=== PATIENT | female | born 1995 | race Caucasian/White ===

== ENCOUNTER → 2021-09-10 15:46 | Outpatient (ROUT) | payer SELFPAY ==
[2021-09-10 15:48] LABS: Urine Drug Scr, Empl Non-NIDA See Separate Report
== END ==
DX: Z02.1 Encounter for pre-employment examination (principal)
CPT/HCPCS: 81099

== ENCOUNTER 2021-09-17 13:41 | Emergency (ER) | payer OTHER, SELFPAY ==
[2021-09-17] VITALS (7 sets, daily range): BP systolic 111–125; BP diastolic 59–75; PULSE 59–75; RESP 15–30; TEMP 36.1; O2SAT 99–100
--- NOTE | 2021-09-17 14:15 | DI.RAD.S_ITS ---
PROCEDURE: XR CHEST 1V INDICATIONS: chest pain TECHNIQUE: One view of the chest was acquired. COMPARISON: [facility], CR, XR CHEST 2VW, 07/18/2015, 19:40. FINDINGS: Surgical changes and devices: None. Lungs and pleura: Lungs are clear. No pleural effusions or pneumothorax. Mediastinum: Mediastinal contours appear normal. Heart size is normal. Bones and chest wall: No suspicious bony lesions. Overlying soft tissues appear unremarkable. IMPRESSION: No acute cardiopulmonary disease. Dictated by: Cary Kelsey M.D. on 09/17/2021 at 15:19 Approved by: Cary Kelsey M.D. on 09/17/2021 at 15:20
[2021-09-17 14:42] LABS: Add Manual Diff / Slide Review NO; Basophils Absolute Auto 0 /uL (0-100); Basophils Percent Auto 0.1 % (0-2); Eosinophils Absolute Auto 0 /uL (0-450); Eosinophils Percent Auto 0.3 % (2-4); Hematocrit 47.8 % (41-53); Lymphocytes Absolute Auto 1200 /uL (1100-4500); Lymphocytes Percent Auto 14.4 % (25-40); Mean Corpuscular HGB Conc 35.5 % (30-36); Mean Corpuscular Hemoglobin 32.4 PG (26-34); Mean Corpuscular Volume 91.2 fL (80-100); Monocytes Absolute Auto 500 /uL (0-900); Monocytes Percent Auto 5.8 % (3-14); Neutrophils Absolute Auto 6800 /uL (1500-7000); Neutrophils Percent Auto 79.4 % (50-75); Platelet Count 219 X10^3/uL (150-400); Red Blood Cell Count 5.24 X10^6/uL (4.5-5.9); White Blood Cell Count 8.6 X10^3/uL (4.5-11.0)
[2021-09-17 14:56] LABS: Alanine Aminotransferase 27 IU/L (<50); Albumin 4.7 g/dL (3.5-5.0); Alkaline Phosphatase 62 U/L (38-126); Aspartate Aminotransferase 31 IU/L (17-59); BUN Creatinine Ratio 16.7 (6-22); Bilirubin Total 1.1 mg/dL (0.2-1.3); Blood Urea Nitrogen 15 mg/dL (9-20); Calcium 9.4 mg/dL (8.4-10.2); Carbon Dioxide 25 mmol/L (22-32); Chloride 101 mmol/L (98-107); Creatine Kinase 83 U/L (55-170); Estimated Glomerular Filt Rate > 60 mL/min (>60); Globulin 2.4 g/dL (1.7-4.1); Glucose 146 mg/dL (70-100); HEMOLYSIS < 15 (0-50); Lipase 42 U/L (23-300); Magnesium 1.9 mg/dL (1.6-2.3); Potassium 3.7 mmol/L (3.4-5.1); Sodium 138 mmol/L (137-145); Total Protein 7.1 g/dL (6.3-8.2)
[2021-09-17 15:08] LABS: Troponin I < 0.012 ng/mL (0.01-0.034)
--- NOTE | 2021-09-17 16:42 | ED.DIZZY ---
HPI - Dizziness <Jason Russo PA-C - Last Filed: 09/17/21 20:24> General Chief Complaint: Syncope Stated Complaint: syncope Time Seen by Provider: 09/17/21 16:05 Source: patient Mode of arrival: Family Vehicle History of Present Illness HPI Narrative: Patient is a 26-year-old male who presents to the emergency department for an evaluation of a syncopal episode that occurred today. Patient explains that he has a new higher at the hospital and was receiving a blood draw when he experienced the syncopal episode. He states that immediately after experiencing a syncopal episode he began to experience slight confusion and mild headache with some associated lightheadedness and mild tingling sensations, however he explains that he is gradually feeling better. He denies any subsequent episodes after the initial syncopal episode. He denies any fever, chills, chest pain, cough, shortness of breath, nausea, vomiting, diarrhea, constipation, abdominal pain, dysuria, hematuria, changes in vision or hearing, generalized weakness, word-finding difficulty, speech abnormalities, worsening confusion, or any other concerning symptoms. No further concerns were voiced at this time. Related Data Allergies Allergy/AdvReac Type Severity Reaction Status Date / Time No Known Drug Allergies Allergy Verified 09/17/21 14:25 Review of Systems <Jason Russo PA-C - Last Filed: 09/17/21 20:24> Constitutional Constitutional: Denies chills, Denies fatigue, Denies fever(s), Denies frequent falls, Reports headache(s), Denies lethargy and Denies weakness ENT Ears, Nose, Mouth, and Throat: Reports headache(s) and Denies neck pain Cardiovascular Cardiovascular: Denies chest pain, Denies irregular heart rhythm, Denies lightheadedness, Denies palpitations, Denies dyspnea, Denies dyspnea on exertion and Denies orthopnea Respiratory Respiratory: Denies dyspnea and Denies dyspnea on exertion Gastrointestinal Gastrointestinal: Denies abdominal pain, Denies change in bowel habits, Denies diarrhea, Denies nausea and Denies vomiting Genitourinary Genitourinary: Denies hematuria, Denies flank pain, Denies urinary incontinence and Denies urinary urgency Musculoskeletal Musculoskeletal: Denies back pain, Denies muscle weakness, Denies neck pain, Denies numbness and Reports tingling Integumentary/Breasts Skin/Breast: Denies pruritus, Denies erythema, Denies rash and Denies wounds Neurologic Neurologic: Denies frequent falls, Reports headache(s), Denies numbness, Reports tingling, Denies weakness and Reports other (Syncope) Endocrine Endocrine: Denies fatigue and Denies palpitations Patient History <Jason Russo PA-C - Last Filed: 09/17/21 20:24> Social History Smoking Status: Never smoker Smoking Status: Never smoker alcohol intake frequency: 0-2 drinks per day Substance Use Type: does not use Exam <Jason Russo PA-C - Last Filed: 09/17/21 20:24> Narrative Exam Narrative: GENERAL: 26 year old patient appears stated age. Well-developed patient, in no acute distress. HEAD: Atraumatic. Normocephalic. EYES: Pupils equal round and reactive. Extraocular motions intact. No scleral icterus. No injection or drainage. ENT: Nose without bleeding, purulent drainage. Throat without erythema, tonsillar hypertrophy or exudate. Airway patent. NECK: Trachea midline. Non tender CARDIOVASCULAR: Regular rate and rhythm without murmurs, gallops, or rubs. RESPIRATORY: Clear to auscultation. Breath sounds equal bilaterally. No wheezes, rales, or rhonchi. GASTROINTESTINAL: Abdomen soft, non-tender, nondistended. EXTREMITIES: No edema or joint tenderness. BACK: Nontender without deformity or crepitance. No flank tenderness. NEURO: AOx3. Cranial nerves 2 through 12 grossly intact. Good sensation light touch appreciated throughout the bilateral upper and lower extremities. Gross motor function intact throughout the bilateral upper and lower extremities. Patient is answering questions and interacting appropriately. No pronator drift. SKIN: No rash or erythema of visible areas Initial Vital Signs Initial Vital Signs: Vital Signs Pulse Rate 59 L 09/17/21 14:05 Respiratory Rate 09/17/21 14:05 Blood Pressure 121/75 09/17/21 14:05 Pulse Oximetry 100 09/17/21 14:05 <Melva Rehman DO - Last Filed: 09/21/21 07:20> Initial Vital Signs Initial Vital Signs: Vital Signs Pulse Rate 59 L 09/17/21 14:05 Respiratory Rate 09/17/21 14:05 Blood Pressure 121/75 09/17/21 14:05 Pulse Oximetry 100 09/17/21 14:05 Course <Jason Russo PA-C - Last Filed: 09/17/21 20:24> Course Course Narrative: CBC, CMP, magnesium, lipase, troponin, chest x-ray, EKG ordered. Chest x-ray and lab studies all within normal limits. Patient explains that he is feeling significantly better since arriving to the emergency department. Orders Ordered: ED Orders 09/17/21 14:15 XR chest 1V Stat 09/17/21 14:31 Complete Blood Count AUTO DIFF Stat Comprehensive Metabolic Panel Stat Lipase Stat Magnesium Stat Troponin & CK Cardiac Panel Stat Vital Signs Vital signs: Vital Signs - 8 hr 09/17/21 14:17 09/17/21 14:05 09/17/21 14:05 Temperature 96.9 F L Pulse Rate 75 59 L Respiratory Rate 20 22 Blood Pressure 121/75 121/75 Pulse Oximetry 99 100 Oxygen Delivery Method Room Air 09/17/21 14:30 09/17/21 14:30 09/17/21 15:00 Temperature Pulse Rate 60 Respiratory Rate 29 H Blood Pressure 118/61 119/60 Pulse Oximetry 100 Oxygen Delivery Method 09/17/21 15:00 09/17/21 15:30 09/17/21 15:30 Temperature Pulse Rate 62 75 Respiratory Rate 19 15 Blood Pressure 111/59 L Pulse Oximetry 100 99 Oxygen Delivery Method 09/17/21 16:00 09/17/21 16:00 09/17/21 16:30 Temperature Pulse Rate 66 Respiratory Rate 30 H Blood Pressure 122/71 125/69 Pulse Oximetry 100 Oxygen Delivery Method 09/17/21 16:30 Temperature Pulse Rate 74 Respiratory Rate 19 Blood Pressure Pulse Oximetry 100 Oxygen Delivery Method <Melva Rehman DO - Last Filed: 09/21/21 07:20> Orders Ordered: ED Orders 09/17/21 14:15 XR chest 1V Stat 09/17/21 14:31 Complete Blood Count AUTO DIFF Stat Comprehensive Metabolic Panel Stat Lipase Stat Magnesium Stat Troponin & CK Cardiac Panel Stat Vital Signs Vital signs: Vital Signs - 8 hr 09/17/21 14:17 09/17/21 14:05 09/17/21 14:05 Temperature 96.9 F L Pulse Rate 75 59 L Respiratory Rate 20 22 Blood Pressure 121/75 121/75 Pulse Oximetry 99 100 Oxygen Delivery Method Room Air 09/17/21 14:30 09/17/21 14:30 09/17/21 15:00 Temperature Pulse Rate 60 Respiratory Rate 29 H Blood Pressure 118/61 119/60 Pulse Oximetry 100 Oxygen Delivery Method 09/17/21 15:00 09/17/21 15:30 09/17/21 15:30 Temperature Pulse Rate 62 75 Respiratory Rate 19 15 Blood Pressure 111/59 L Pulse Oximetry 100 99 Oxygen Delivery Method 09/17/21 16:00 09/17/21 16:00 09/17/21 16:30 Temperature Pulse Rate 66 Respiratory Rate 30 H Blood Pressure 122/71 125/69 Pulse Oximetry 100 Oxygen Delivery Method 09/17/21 16:30 Temperature Pulse Rate 74 Respiratory Rate 19 Blood Pressure Pulse Oximetry 100 Oxygen Delivery Method MDM - Dizziness <Jason Russo PA-C - Last Filed: 09/17/21 20:24> Lab Data Result diagrams: 09/17/21 14:31 09/17/21 14:31 Labs: Lab Results 09/17/21 09/17/21 Range/Units 14:31 14:31 WBC 8.6 (4.5-11.0) X10^3/uL RBC 5.24 (4.5-5.9) X10^6/uL Hgb 17.0 (13.5-17.5) g/dL Hct 47.8 (41-53) % MCV 91.2 (80-100) fL MCH 32.4 (26-34) PG MCHC 35.5 (30-36) % RDW 12.0 (11.6-14.8) % Plt Count 219 (150-400) X10^3/uL Neut % (Auto) 79.4 H (50-75) % Lymph % (Auto) 14.4 L (25-40) % Castro % (Auto) 5.8 (3-14) % Eos % (Auto) 0.3 L (2-4) % Baso % (Auto) 0.1 (0-2) % Neut # (Auto) 6800 (2253-5173) /uL Lymph # (Auto) 1200 (8423-4316) /uL Castro # (Auto) 500 (0-900) /uL Eos # (Auto) 0 (0-450) /uL Baso # (Auto) 0 (0-100) /uL Sodium 138 (137-145) mmol/L Potassium 3.7 (3.4-5.1) mmol/L Chloride 101 (98-107) mmol/L Carbon Dioxide 25 (22-32) mmol/L BUN 15 (9-20) mg/dL Creatinine 0.90 (0.66-1.25) mg/dL Estimated GFR > 60 (>60) mL/min BUN/Creatinine Ratio 16.7 (6-22) Glucose 146 H (70-100) mg/dL Calcium 9.4 (8.4-10.2) mg/dL Magnesium 1.9 (1.6-2.3) mg/dL Total Bilirubin 1.1 (0.2-1.3) mg/dL AST 31 (17-59) IU/L ALT 27 (<50) IU/L Alkaline Phosphatase 62 (38-126) U/L Total Creatine Kinase 83 (55-170) U/L CK-MB (CK-2) TNP CK-MB (CK-2) Rel Index TNP Troponin I < 0.012 (0.01-0.034) ng/mL Total Protein 7.1 (6.3-8.2) g/dL Albumin 4.7 (3.5-5.0) g/dL Globulin 2.4 (1.7-4.1) g/dL Albumin/Globulin Ratio 2.0 (1.0-2.8) Lipase 42 (23-300) U/L Imaging Data Chest x-ray: Radiologist's Impression: PROCEDURE:? XR CHEST 1V ? INDICATIONS:? chest pain ? TECHNIQUE:? One view of the chest was acquired.? ? COMPARISON:? [facility], CR, XR CHEST 2VW, 07/18/2015, 19:40. ? FINDINGS:? ? Surgical changes and devices:? None.? ? Lungs and pleura:? Lungs are clear.? No pleural effusions or pneumothorax.? ? Mediastinum:? Mediastinal contours appear normal.? Heart size is normal.? ? Bones and chest wall:? No suspicious bony lesions.? Overlying soft tissues appear unremarkable.? ? IMPRESSION:? No acute cardiopulmonary disease. ? ? Dictated by: Cary Kelsey M.D. on 09/17/2021 at 15:19 ? ? Approved by: Cary Kelsey M.D. on 09/17/2021 at 15:20 MDM Narrative Medical decision making narrative: Differential diagnosis to consider but not limited to seizure disorder versus vasovagal syncope versus cardiogenic syncope versus cardiac arrhythmia. Physical examination history are reassuring, most likely vasovagal syncope considering that there was a triggering event in the blood draw. I informed the patient of the results of lab studies and imaging obtained in the emergency department today and explained there is no abnormality identified. I urged the patient to stay well hydrated throughout the day and follow-up with primary care for further evaluation and management. Patient expresses understanding and agrees to plan. Strict return precautions were discussed with the patient prior to discharge. <Melva Rehman, DO - Last Filed: 09/21/21 07:20> Lab Data Labs: Lab Results 09/17/21 09/17/21 Range/Units 14:31 14:31 WBC 8.6 (4.5-11.0) X10^3/uL RBC 5.24 (4.5-5.9) X10^6/uL Hgb 17.0 (13.5-17.5) g/dL Hct 47.8 (41-53) % MCV 91.2 (80-100) fL MCH 32.4 (26-34) PG MCHC 35.5 (30-36) % RDW 12.0 (11.6-14.8) % Plt Count 219 (150-400) X10^3/uL Neut % (Auto) 79.4 H (50-75) % Lymph % (Auto) 14.4 L (25-40) % Castro % (Auto) 5.8 (3-14) % Eos % (Auto) 0.3 L (2-4) % Baso % (Auto) 0.1 (0-2) % Neut # (Auto) 6800 (1556-1839) /uL Lymph # (Auto) 1200 (0550-4125) /uL Castro # (Auto) 500 (0-900) /uL Eos # (Auto) 0 (0-450) /uL Baso # (Auto) 0 (0-100) /uL Sodium 138 (137-145) mmol/L Potassium 3.7 (3.4-5.1) mmol/L Chloride 101 (98-107) mmol/L Carbon Dioxide 25 (22-32) mmol/L BUN 15 (9-20) mg/dL Creatinine 0.90 (0.66-1.25) mg/dL Estimated GFR > 60 (>60) mL/min BUN/Creatinine Ratio 16.7 (6-22) Glucose 146 H (70-100) mg/dL Calcium 9.4 (8.4-10.2) mg/dL Magnesium 1.9 (1.6-2.3) mg/dL Total Bilirubin 1.1 (0.2-1.3) mg/dL AST 31 (17-59) IU/L ALT 27 (<50) IU/L Alkaline Phosphatase 62 (38-126) U/L Total Creatine Kinase 83 (55-170) U/L CK-MB (CK-2) TNP CK-MB (CK-2) Rel Index TNP Troponin I < 0.012 (0.01-0.034) ng/mL Total Protein 7.1 (6.3-8.2) g/dL Albumin 4.7 (3.5-5.0) g/dL Globulin 2.4 (1.7-4.1) g/dL Albumin/Globulin Ratio 2.0 (1.0-2.8) Lipase 42 (23-300) U/L Discharge Plan Departure Patient Disposition: Home Clinical Impression: Vasovagal syncope Instructions: DI for Syncope in Adults (Fainting) Activity Restrictions/Additional Instructions: *You have been diagnosed with vasovagal syncope *What to do: *Please continue to take your regular medications as directed. [ ] New medication prescriptions sent to your pharmacy: [ ] [ ] New medication written as a paper prescription [X] No new medications given You were evaluated in the emergency department today for a syncopal episode. Lab studies and imaging obtained in the emergency department today returned within normal limits. Is likely that you have experienced a vasovagal syncope, which is a fainting episode caused by a stressor (in this case the blood draw). I recommend following up with the primary care provider within the next 3 days for further evaluation and management. Please do not hesitate to return to the emergency department if you experience further episodes of syncope, confusion, weakness, word-finding difficulty, or any other concerning symptoms. *Please follow up with your primary care provider in 2-3 days, call for an appointment. Let them know you were seen in the Emergency Department and that we ask that you be seen in follow up. We will electronically transmit a record of today's note if your PCP is in our system *If you do not have a primary care provider please contact the [facility] Resource line at [phone]. They will ask some questions about your medical history and help get you set up with a doctor in the community. *Return to Emergency Department if you should have any new, worsening or concerning symptoms, such as fever greater than 101 F, shaking chills, worsening pain, persistent vomiting or other bothersome symptoms. Visit Report Forms: Patient Portal/API <Melva Rehman, - Last Filed: 09/21/21 07:20> Cosign ED Attending Moature Attestation: I was immediately available in the department for consultation. Documentation has been reviewed. Patient does not have an EKG for review.
--- NOTE | 2021-09-17 17:04 | PC.NURSE ---
Pt is a new hire PT/OT tech. Pt was having labs drawn at the laboratory and had a described syncopal episode/vaso-vagal response. Pt arrived to ED AAOx3. With h/o cerebral palsy--unsteady gait is normal for patient. Ambulated to bathroom without difficulty. VS remain WNL.
== END 2021-09-17 17:10 | disposition home or self-care (01) ==
PROVIDERS: Emergency Medicine; Emergency Provider Physician Assistant
DX: R55 Syncope and collapse (principal); R07.9 Chest pain, unspecified
CPT/HCPCS: 36415; 71045; 80053; 82550; 83690; 83735; 84484; 85025; 99284

== ENCOUNTER → 2022-03-18 14:19 | Outpatient (CLI) | payer OTHER, SELFPAY | PROVIDERS: Referring Provider Internal Medicine; Visit Provider Internal Medicine | DX: Z23 Encounter for immunization (principal) | CPT/HCPCS: 90471; 90686 ==